=== PATIENT | male | born 1970 | race Caucasian/White ===

== ENCOUNTER 2023-03-25 08:01 | Emergency (ER) | payer SELFPAY ==
[2023-03-25] MEDS ORDERED: Ondansetron 4 MG/2 ML SDV IVPUSH ONE (08:18)
[2023-03-25] MEDS ORDERED: HYDROmorphone 1 MG/ML Syringe IVPUSH ONE (08:18)
[2023-03-25] MEDS ORDERED: Sodium Chloride 0.9% 1,000 ML IV ONE (08:18)
[2023-03-25 08:32] LABS: BASOPHILS PERCENT AUTO 0.2 % (0.0-1.5); EOSINOPHILS PERCENT AUTO 0.4 % (0.0-7.0); HEMATOCRIT 48.5 % (38.0-50.0); HEMOGLOBIN 16.1 g/dL (13.0-17.0); LYMPHOCYTES ABSOLUTE AUTO 1.9 K/uL (0.6-2.4); LYMPHOCYTES PERCENT AUTO 23.3 % (16.0-40.0); MEAN CORPUSCULAR HEMOGLOBIN 29.4 pg (27.0-32.0); MEAN CORPUSCULAR HGB CONC 33.2 g/dL (31.0-37.0); MEAN CORPUSCULAR VOLUME 88.7 fL (80.0-98.0); MONOCYTES ABSOLUTE AUTO 0.5 K/uL (0.0-0.8); MONOCYTES PERCENT AUTO 6.4 % (0.0-15.0); NEUTROPHILS ABSOLUTE AUTO 5.6 K/uL (1.4-5.7); NEUTROPHILS PERCENT AUTO 69.7 % (48.0-80.0); NRBC ABSOLUTE 0 K/uL; PLATELET COUNT,PLT 200 K/uL (150-400); RED BLOOD CELL COUNT 5.47 M/uL (4.50-5.90)
[2023-03-25 08:54] LABS: A/G RATIO 0.9 (0.9-1.6); ALBUMIN 3.7 g/dL (3.4-5.0); BILIRUBIN TOTAL 0.6 mg/dL (0.2-1.0); CALCIUM 8.3 mg/dL (8.5-10.1); CARBON DIOXIDE,CO2 26.9 mmol/L (21.0-32.0); CREATININE 1.3 mg/dL (0.8-1.3); EST CRCL DRUG DOSING (CG) 56.51 mL/min; PROTEIN TOTAL,TP 7.7 g/dL (6.4-8.2)
[2023-03-25] MEDS ORDERED: Iopamidol 755 MG/ML 500 ML Multipack Bottle IVPUSH STA (10:09)
== END 2023-03-25 11:48 | disposition home or self-care (01) ==
LOC: MW.ED 08:01
DX: K43.9 Ventral hernia without obstruction or gangrene (principal)
CPT/HCPCS: 36415; 74177; 80053; 83605; 85025; 96374; 96375; 99284; J1170; J2405; J7030; Q9967

== ENCOUNTER 2023-04-01 06:24 | Day surgery (SDC) | payer SELFPAY ==
[~2023-04-01 06:24] MED LIST: Albuterol 0.083% 2.5 MG/3 ML Neb Soln NEB PRN; HYDROmorphone 1 MG/ML Syringe IVPUSH PRN; Lactated Ringers 1,000 ML IV SCH; Metoclopramide 10 MG/2 ML SDV IVPUSH PRN; Morphine 2 MG/ML SYRINGE IVPUSH PRN; Naloxone 0.4 MG/ML SDV IVPUSH PRN; Ondansetron 4 MG/2 ML SDV IVPUSH PRN; ceFAZolin 2 GM in Sodium Chloride 0.9% 50 ML IV ONE; droPERidol 5 MG/2 ML SDV IVPUSH PRN; fentaNYL 50 MCG/ML SDV IVPUSH PRN
[2023-04-01] MEDS ORDERED: Scopolamine 1.5 MG Transdermal Patch TOP ONE (06:30)
[2023-04-01] MEDS ORDERED: HYDROmorphone 1 MG/ML Syringe IVPUSH PRN (07:12)
[2023-04-01] MEDS ORDERED: Metoclopramide 10 MG/2 ML SDV IVPUSH PRN (07:12)
[2023-04-01] MEDS ORDERED: fentaNYL 50 MCG/ML SDV IVPUSH PRN (07:12)
[2023-04-01] MEDS ORDERED: Albuterol 0.083% 2.5 MG/3 ML Neb Soln NEB PRN (07:12)
[2023-04-01] MEDS ORDERED: Ondansetron 4 MG/2 ML SDV IVPUSH PRN (07:12)
[2023-04-01] MEDS ORDERED: droPERidol 5 MG/2 ML SDV IVPUSH PRN (07:12)
[2023-04-01] MEDS ORDERED: Naloxone 0.4 MG/ML SDV IVPUSH PRN (07:12)
[2023-04-01] MEDS ORDERED: Morphine 2 MG/ML SYRINGE IVPUSH PRN (07:12)
[2023-04-01] MEDS ORDERED: propofoL 200 ML ONE (07:18)
[2023-04-01] MEDS ORDERED: Ropivacaine 0.5% 5 MG/ML 30 ML SDV ONE (07:19)
[2023-04-01] MEDS ORDERED: Lidocaine 2% 100 MG/5 ML Syringe ONE (07:21)
[2023-04-01] MEDS ORDERED: Dexmedetomidine 200 MCG/2 ML SDV ONE (07:21)
[2023-04-01] MEDS ORDERED: Lidocaine 2% 5 ML SDV ONE ×2 (07:21→08:18)
[2023-04-01] MEDS ORDERED: ceFAZolin 1 GM Vial ONE ×3 (07:23→08:57)
[2023-04-01] MEDS ORDERED: Bupivacaine 0.5% 30 ML SDV ONE (07:23)
[2023-04-01] MEDS ORDERED: Rocuronium Bromide 50 MG/5 ML Syringe ONE ×2 (07:27)
[2023-04-01] MEDS ORDERED: fentaNYL 100 MCG/2 ML SDV ONE (07:43)
[2023-04-01] MEDS ORDERED: Morphine 10 MG/ML SDV ONE (07:43)
[2023-04-01] MEDS ORDERED: Metoclopramide 10 MG/2 ML SDV ONE (08:18)
[2023-04-01] MEDS ORDERED: Ketorolac 30 MG/ML SDV ONE (08:18)
[2023-04-01] MEDS ORDERED: Sugammadex Sodium 200 MG/2 ML VIAL ONE (08:18)
[2023-04-01] MEDS ORDERED: Dexamethasone 4 MG/ML 5 ML MDV ONE (08:18)
[2023-04-01] MEDS ORDERED: Glycopyrrolate 0.2 MG/ML SDV ONE (08:19)
[2023-04-01] MEDS ORDERED: Magnesium Sulfate (4.06 MEQ/ML) 5 GM/10 ML SDV ONE (08:19)
[2023-04-01] MEDS ORDERED: Phenylephrine HCl 0.5 MG/5 ML AMP ONE (08:25)
[2023-04-01] MEDS ORDERED: Lidocaine 2% 11 ML Jelly Filled Syringe ONE (08:39)
[2023-04-01] MEDS ORDERED: Ondansetron 4 MG/2 ML SDV ONE ×2 (08:51)
[2023-04-01] MEDS ORDERED: Acetaminophen/HYDROcodone 325-5 MG Tab PO PRN (09:35)
[2023-04-01] MEDS ORDERED: Morphine 4 MG/ML Syringe IVPUSH PRN (09:35)
[2023-04-01] MEDS ORDERED: Lactated Ringers 1,000 ML IV SCH (09:45)
== END 2023-04-01 12:28 | disposition home or self-care (01) ==
LOC: MW.SDS 06:24
PROVIDERS: ATTEND Surgery
DX: K43.6 Other and unspecified ventral hernia with obstruction, without gangrene (principal); E66.01 Morbid (severe) obesity due to excess calories; Z68.41 Body mass index [BMI] 40.0-44.9, adult; Z83.3 Family history of diabetes mellitus
CPT/HCPCS: 49594; A9270; J0131; J0690; J1100; J1885; J2270; J2371; J2405; J2704; J2765; J2795; J3010; J3475; J3490; J7120; 00790; C1781